=== PATIENT | female | born 1980 | race Caucasian/White ===

== ENCOUNTER 2023-07-15 08:23 | Outpatient (CLI) | payer BC, SELFPAY ==
[2023-07-15 08:53] LABS: Basophils Percent Auto 0.3 % (0.2-1.2); Eosinophils Absolute Auto 0.1 K/mm3 (0-0.3); Eosinophils Percent Auto 1.5 % (0-4.4); Hematocrit 40.1 % (37.0-47.0); Hemoglobin 13.6 g/dL (12.0-15.0); Immature Granulocyte Absolute 0.03 K/mm3 (0.00-0.031); Immature Granulocyte Percent A 0.4 % (0-0.5); Mean Corpuscular HGB Conc 33.9 g/dl (32-36); Mean Corpuscular Hemoglobin 30.6 pg (26-34); Mean Corpuscular Volume 90.1 fl (80-100); Monocytes Absolute Auto 0.4 K/mm3 (0.1-0.6); Monocytes Percent Auto 6.6 % (2.6-8.5); Neutrophils Absolute Auto 4.3 K/mm3 (1.3-6.7); Neutrophils Percent Auto 64.2 % (45.5-73.1); Platelet Count Result 160 k/mm3 (150-375); Red Blood Count 4.45 M/mm3 (4.2-5.4); Red Cell Distribution Width 12.9 % (11.5-14.5); White Blood Count 6.7 K/mm3 (4.5-10.0)
== END 2023-07-15 08:24 | disposition home or self-care (01) ==
LOC: ANHSURGERY 08:28
PROVIDERS: PCP Family Medicine; Visit Provider Obstetrics & Gynecology
DX: N92.0 Excessive and frequent menstruation with regular cycle (principal); Z01.818 Encounter for other preprocedural examination
CPT/HCPCS: 36415; 85025; 86850; 86900; 86901

== ENCOUNTER 2023-07-19 03:14 | Day surgery (SDC) | payer BC, SELFPAY ==
[2023-07-09 09:57] VITALS: BMI 40.8
--- NOTE | 2023-07-09 10:06 | PC.NURSE ---
Report to the Outpatient Waiting Room, entrance under the green pavilion located off [facility], at time _0730_ on date _[id number]_. Planned Procedure Time: _0930_. Time changes happen often and if your time is changed the preop area will call you the afternoon before. - You and your visitor will be asked to self-screen and do not enter if you have any COVID symptoms. - A mask is optional within the hospital at this time. Patients may have clear liquids (water, carbonated beverages, clear teas, apple juice) until 3 hours prior to surgery with a maximum of 20 ounces. - No food from midnight until time of surgery Take the following medications with a SIP of water the morning of surgery: ___Pain medication if needed. DO NOT STOP ANY OF YOUR OTHER PRESCRIPTION MEDICATIONS PRIOR TO SURGERY ?EXCEPT THE FOLLOWING Medications to discontinue per physician Multivitamin and B complex Date to take last [id number] Please no make-up, nail wolof, hairspray, perfume, deodorant, or body powder the day of surgery. No jewelry (including any body piercings) or valuables the day of surgery, leave them at home. Please take a shower or bath the night before, or the morning of, surgery with an antibacterial soap. Wear comfortable, loose fitting clothing. - Jewelry must be removed prior to entering the operating room. Rings and piercings that are not removed may be cut off. - The hospital will not accept responsibility for valuables. - Please leave all valuables, including medications, at home the day of surgery. If you are going home after surgery, a licensed recycle driver must drive you home. - NO public transportation without another adult if you receive anesthesia. - We recommend that an adult stay with you for 24 hours following discharge. - We also recommend that you do not drive, make important decision, drink alcoholic beverages, or take any drugs that were not prescribed by your health care provider for at least 24 hours after your discharge time. Follow any additional instructions given to you from your surgeon. If you or anyone in your household have experienced Covid symptoms in the past week, please notify your surgeon or the nurse liaison at the phone number below for possible testing. Telephone instructions given to __Patient___and asked if any additional questions and then verbalized understanding. Patient advised to call surgeon office or pre surgery nurse liaison [phone] if any additional questions.
--- NOTE | 2023-07-16 07:14 | PM.IMHP ---
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 She has been anemic secondary to vaginal bleeding. Risks and benefits of this procedure reviewed including but not exclusive of , aspiration pneumonia, bleeding, transfusion, perforation injury to bowel, bladder, ureters, or other internal organs with need for open laparotomy. She received the [employer] handout entitled hysterectomy as well as the [place] handout. She had all questions answered. She asked to proceed PMFSH Past Medical History Medical History Acute arthritis Anemia Generalized osteoarthritis of multiple sites Psoriatic arthritis Surgical History Surgical History Ovary removal, prophylactic Family History Family History Other Cancer Cerebrovascular accident Diabetes mellitus Heart disease Hypertension Thyroid disease Social History Social History Smoking packs per day: 1 Smoking cigarettes per day: 20.0 Years smoked: 10 Smoking pack-years: 10.00 Smoking status: Former smoker Tobacco type: cigarettes Smoking end date: 07/09/13 Alcohol intake: never Substance use: never Substance use type: does not use Living arrangements: with family Spiritual care concerns: No Meds Home Medications and Allergies Home Medications Medication Instructions Recorded Confirmed Type cetirizine 10 mg tablet (24Hour 10 mg PO DAILY PRN Allergy Symptoms 12/12/22 07/09/23 History Allergy) multivitamin 1 tablet PO DAILY 12/12/22 07/09/23 History tramadol 50 mg tablet 50 mg PO Q6H PRN Pain 12/12/22 07/09/23 History triamcinolone acetonide 0.1 % 1 applic topical BID 12/12/22 07/09/23 History topical cream vitamin B complex (B 1 tablet PO DAILY 12/12/22 07/09/23 History Complex-Vitamin B12 tablet) celecoxib 200 mg capsule (Celebrex) 200 mg PO DAILY PRN Pain 07/09/23 07/09/23 History Allergies Allergy/AdvReac Type Severity Reaction Status Date / Time azathioprine Allergy Mild Unknown Verified 07/09/23 09:54 latex Allergy Mild Rash Verified 07/09/23 09:54 Sulfa (Sulfonamide Allergy Mild Unknown Verified 07/09/23 09:54 Antibiotics) Exam Const: General: cooperative, healthy appearing and comfortable Orientation/consciousness: oriented to person, oriented to place and oriented to time HENMT: Head: normal to inspection Resp: Effort & Inspection: normal respiratory effort Cardio: Rate: regular rate Rhythm: regular rhythm Heart sounds: S1 normal heart sound present and S2 normal heart sound present GI: Inspection: normal to inspection and obesity Auscultation: normal bowel sounds : External Female Exam: normal external appearance Speculum Exam - Vagina: normal appearance of the vagina Speculum Exam - Cervix: normal appearance of the cervix Bimanual exam- vagina & uterus: enlarged Bimanual Exam- Adnexa, other: normal adnexae Assessment and Plan Assessment and plan (1) Pelvic pain: Code(s): R10.2 - Pelvic and perineal pain Status: Acute (2) Dysmenorrhea: Code(s): N94.6 - Dysmenorrhea, unspecified Status: Acute (3) Bicornuate uterus: Code(s): Q51.3 - Bicornate uterus Status: Acute Plan robotic total vaginal hysterectomy and bilateral salpingectomy
[2023-07-19] VITALS (10 sets, daily range): BP systolic 121–149; BP diastolic 66–89; PULSE 62–87; RESP 12–18; TEMP 36.1–36.8; O2SAT 96–100
--- NOTE | 2023-07-19 06:39 | WPDHPUPDATE1 ---
History and Physical Update Update Date/Time: 07/19/23 06:39 History and Physical has been reviewed, including an updated exam of the patient. There are NO changes in the patient's condition. Risks, benefits, and alternatives have been discussed and questions answered. Patient agrees to proceed with procedure.
[2023-07-19] MEDS: LACTATED RINGERS 1,000 ML 30 ML IV CONT ×2 (07:56→10:52)
[2023-07-19] MEDS: ACETAMINOPHEN 500 MG TABLET 1000 MG PO (08:19)
[2023-07-19] MEDS: KETOROLAC 15 MG/ML VIAL (*BKC) IV PUSH (08:20)
--- NOTE | 2023-07-19 08:35 | WPDANESEPPF ---
Anes - Initial Pre Proc Eval Procedure: Operation Date: 07/19/23 09:30 Proposed Procedures p Robotic Assisted Total Vaginal Hysterectomy with Bilateral Salpingectomy - Brien Garcia MD Date/Time: 07/19/23 08:35 Surgeon: Brien Garcia MD Pre Op Diagnosis: pain, heavy bleeding Patient Data Age: 42 Gender: F Height: 1.7 m Weight: 118.2 kg Allergies Allergy/AdvReac Type Severity Reaction Status Date / Time nut - unspecified Allergy Intermediate Hives Verified 07/19/23 07:45 azathioprine Allergy Mild Unknown Verified 07/19/23 07:43 latex Allergy Mild Rash Verified 07/19/23 07:43 Sulfa (Sulfonamide Allergy Mild Unknown Verified 07/19/23 07:43 Antibiotics) venom-wasp AdvReac Mild Swelling Verified 07/19/23 07:45 Home Medications Medication Instructions Recorded Confirmed Type cetirizine 10 mg tablet (24Hour 10 mg PO DAILY PRN Allergy Symptoms 12/12/22 07/19/23 History Allergy) multivitamin 1 tablet PO DAILY 12/12/22 07/19/23 History tramadol 50 mg tablet 50 mg PO Q6H PRN Pain 12/12/22 07/19/23 History triamcinolone acetonide 0.1 % 1 applic topical BID 12/12/22 07/19/23 History topical cream vitamin B complex (B 1 tablet PO DAILY 12/12/22 07/19/23 History Complex-Vitamin B12 tablet) celecoxib 200 mg capsule (Celebrex) 200 mg PO DAILY PRN Pain 07/09/23 07/19/23 History hydrocodone 5 mg-acetaminophen 325 1 tablet PO Q4H PRN pain #30 tabs 07/19/23 Rx mg tablet Patient hx anesthesia problems: none Family hx anesthesia problems: none Results Review: All pre-operative results and documents have been reviewed as part of the pre-operative evaluation. [facility] Past Medical History Medical History Acute arthritis Anemia Generalized osteoarthritis of multiple sites Psoriatic arthritis Surgical History Surgical History Ovary removal, prophylactic Family History Family History Other Cancer Cerebrovascular accident Diabetes mellitus Heart disease Hypertension Thyroid disease Social History Social History Smoking packs per day: 1 Smoking cigarettes per day: 20.0 Years smoked: 10 Smoking pack-years: 10.00 Smoking status: Former smoker Tobacco type: cigarettes Smoking end date: 07/09/13 Alcohol intake: never Substance use: never Substance use type: does not use Living arrangements: with family Spiritual care concerns: No Anes - Eval Final PreProcedure Day of Procedure 07/19/23 08:35 Patient weight: morbidly obese Heart: regular rate and rhythm Lungs: clear to auscultation Airway: Mallampati scale class II Neurological: alert and oriented Last oral intake: >/= 8 hours ASA classification: III Emergent: no Anesthetic plan: proceed Anesthesia type and monitoring: general ETT and standard monitoring Results Review: All pre-operative results and documents have been reviewed as part of the pre-operative evaluation. Informed Consent: The patient's anesthetic plan and its attendant risks and benefits were discussed with the patient/family/POA. Questions were solicited and answers provided to the satisfaction of the patient/family/POA.
[2023-07-19] MEDS: ceFAZolin 2 GM/D5W 50 ML 2 GM/50 ML BAG IVPB (09:28)
--- NOTE | 2023-07-19 10:27 | P.OP_ITS ---
Procedure Note - Detailed Date of Procedure 07/19/23 Pre-op Diagnosis pain, heavy bleeding Post-op Diagnosis Same Procedure Performed Buttock total vaginectomy bilateral salpingectomy Surgeon Brien Garcia MD Anesthesia General Indications This is a 42-year-old female with a bicornuate uterus and excessive heavy bleeding Findings Mildly enlarged uterus. Absent left ovary. Description of Procedure Patient was prepped draped sterile fashion placed in the dorsal lithotomy position. Under excellent general trach anesthesia weighted speculum placed posterior fornix vagina. Anterior lip of the cervix grasped with single-tooth tenaculum the uterus sounded to 10cm. Serial dilatation with fragmented out performed followed by passes the 8. KATHIA and the 3. Cold cup. Next the 16 Marshall[place] catheter placed in bladder and bladder drained of clear urine. The weighted speculum was removed the gloves were changed. A supraumbilical incision made the Veress needle passed in the abdomen. Abdomen filled with CO2 gas [id number]. The 8 trocar advanced exam. Downside visualized. No injury seen. Patient placed in 20? Trendelenburg. In left and right lateral quadrant incisions made. 8mm trocars advanced under direct visualization assuring no injury. Right upper quadrant incision made the 8mm trocar advanced under direct visualization assuring no injury. The robot was docked. Attention was turned to the console. The there were some adhesions anteriorly which were sharply dissected from the omentum to the anterior abdominal wall. Left round was grasped, burned, cut. Anterior bladder flap was formed. The left fallopian tube was sharply dissected away from the adnexa and left attached at its uterine origin. This was repeated on the contralateral side with the right tube. The right utero-ovarian ligament was skeletonized conserving the right ovary clamping burning cutting until reaching the previously cut round ligament. There was no ovary on the left cardinal broad ligaments on the left were serially skeletonized clamping burning cutting and bringing this down to the uterine vessels on the left. Serially clamped, burned, cut. A similar fashion the cardinal broad ligaments on the right were serially skeletonized clamping burning cutting and bringing this down the lateral edge of the uterus until the uterine vessels could be seen. These were then grasped, burned, cut. Blanching these were seen a colpotomy incision was made. Uterus cervix and tubes removed through the vagina. The vagina closed with continuous running locking 0 Vicryl from lateral edge to lateral edge and back to the midline. Irrigation undertaken to clear. [place] term was placed to the raw surface area. The robot was undocked. The gas removed from the abdomen. The trocars removed and the incisions closed with 4 Monocryl glue the patient was awakened went to recovery in satisfactory condition. All sponge, needle, instrument counts were correct. There were no immediate complications Estimated Blood Loss 25 Drains No Packing No Pathology Yes Complications No immediate complications Condition Stable Disposition PACU
[2023-07-19] MEDS: fentaNYL CITRATE INJ (*CRX) 100 MCG/2 ML VIAL 25 MCG IV PUSH ×4 (11:10→11:23)
--- NOTE | 2023-07-19 12:15 | PC.NURSE ---
Patient transferred to post room #276 via ( stretcher ). Support person present. Oriented to unit, room, information board, rooming in, admission packet and security measures. Patient verbalizes understanding.
[2023-07-19] MEDS: DEXTROSE 5%/LACTATED RINGERS 1,000 ML 125 ML IV CONT (12:27)
[2023-07-19] MEDS: KETOROLAC 30 MG/ML VIAL (*BKC) IV PUSH (12:33)
--- NOTE | 2023-07-19 12:47 | PM.DS ---
DS: Admitting Diagnosis Discharge Date 07/20/2020 Admitting Diagnosis Bicornuate uterus/dysmenorrhea/pelvic pain DS: Discharge Diagnosis Discharge Diagnosis (1) Bicornuate uterus: Code(s): Q51.3 - Bicornate uterus Status: Acute (2) Dysmenorrhea: Code(s): N94.6 - Dysmenorrhea, unspecified Status: Acute (3) Pelvic pain: Code(s): R10.2 - Pelvic and perineal pain Status: Acute DS: Summary Hospital Course Reason for hospitalization: Patient for robotic total vaginal hysterectomy and bilateral salpingectomy on 07/19/2023. Hospital Course: Patient underwent said procedure 13 3. She had an unremarkable postoperative course. She remained afebrile. Was up 2 ambulating, eating a regular diet, and generally without complaints. Time Spent with Patient Time attestation: Total time spent providing and/or coordinating discharge services: Exam Const: General: cooperative, healthy appearing and comfortable Nutritional Appearance: average body habitus Orientation/consciousness: oriented to person, oriented to place and oriented to time Resp: Effort & Inspection: normal respiratory effort Cardio: Rate: regular rate Rhythm: regular rhythm Heart sounds: S1 normal heart sound present and S2 normal heart sound present GI: Inspection: normal to inspection and incision (Wounds are clean dry and intact) Discharge Plan Discharge Patient Disposition: Home, Self-Care Stand Alone Forms: General Discharge Instructions Follow-up/Referrals: Brien Guerrero MD [Physician] - Discharge Medications: New hydrocodone-acetaminophen 5-325 mg tablet 1 tablet PO Q4H PRN (Reason: pain) Qty: 30 0RF No Action celecoxib [Celebrex] 200 mg capsule 200 mg PO DAILY PRN (Reason: Pain) triamcinolone acetonide 0.1 % cream 1 applic topical BID tramadol 50 mg tablet 50 mg PO Q6H PRN (Reason: Pain) multivitamin Tablet 1 tablet PO DAILY vitamin B complex [B Complex-Vitamin B12] Tablet 1 tablet PO DAILY cetirizine [24Hour Allergy] 10 mg tablet 10 mg PO DAILY PRN (Reason: Allergy Symptoms)
[2023-07-19] MEDS: ONDANSETRON INJ 4 MG/2 ML VIAL IV PUSH (15:17)
[2023-07-19] MEDS: DOCUSATE SODIUM 100 MG CAPSULE PO (16:12)
[2023-07-19] MEDS: IBUPROFEN 600 MG TABLET PO (20:30)
[2023-07-20] MEDS: ACETAMINOPHEN 325 MG TABLET 650 MG PO (04:28)
[2023-07-20 04:30] VITALS: BP 128/77; PULSE 73; RESP 16; TEMP 36.7; O2SAT 98
[2023-07-20 08:00] VITALS: BP 149/80; PULSE 76; RESP 18; TEMP 36.7; O2SAT 100
[2023-07-20 08:46] LABS: Basophils Percent Auto 0.1 % (0.2-1.2); Hematocrit 38.4 % (37.0-47.0); Hemoglobin 12.8 g/dL (12.0-15.0); Immature Granulocyte Absolute 0.07 K/mm3 (0.00-0.031); Immature Granulocyte Percent A 0.5 % (0-0.5); Lymphocytes Absolute Auto 1.01 K/mm3 (0.9-3.2); Lymphocytes Percent Auto 6.6 % (18.3-44.2); Mean Corpuscular HGB Conc 33.3 g/dl (32-36); Mean Corpuscular Hemoglobin 30.8 pg (26-34); Mean Corpuscular Volume 92.5 fl (80-100); Monocytes Absolute Auto 0.6 K/mm3 (0.1-0.6); Monocytes Percent Auto 3.8 % (2.6-8.5); Neutrophils Absolute Auto 13.5 K/mm3 (1.3-6.7); Platelet Count Result 176 k/mm3 (150-375); Red Blood Count 4.15 M/mm3 (4.2-5.4); Red Cell Distribution Width 12.5 % (11.5-14.5); White Blood Count 15.2 K/mm3 (4.5-10.0)
--- NOTE | 2023-07-20 09:25 | PM.GYNPNOP ---
GARAGE HELPER - A/P Assessment and plan (1) Bicornuate uterus: Code(s): Q51.3 - Bicornate uterus Status: Acute Assessment and Plan: A: POD#1, doing well. P: Home to f/u 2 weeks. (2) Dysmenorrhea: Code(s): N94.6 - Dysmenorrhea, unspecified Status: Acute (3) Pelvic pain: Code(s): R10.2 - Pelvic and perineal pain Status: Acute Postoperative Procedures: Procedures Operation Date: 07/19/23 09:30 Actual Procedure Side Surgeon p Robotic Assisted Total Vaginal Hysterectomy with Bilateral Salpingectomy Bilateral Brien Garcia MD Time Spent With Patient Time with patient: less than 15 minutes GARAGE HELPER- PN:Subj Post-Op Subjective Date/time seen: 07/20/23 09:25 Interval history: Pain OK. Tolerating diet. Voiding. Would like to go home. Exam Narrative: AVSS I/O OK ABD soft, nontender. Incisions c/d/i. EXT nontender GARAGE HELPER - PN: Obj Data Vital Signs Vital Signs: Vital Signs - 24 hr 07/19/23 10:52 07/19/23 11:05 07/19/23 11:20 Temperature 36.1 C L Pulse Rate 87 72 74 Respiratory Rate 12 12 12 Blood Pressure 139/68 132/86 142/86 H Pulse Oximetry 100 100 97 Oxygen Delivery Simple Face Mask Simple Face Mask Room Air Oxygen Flow Rate 8 8 07/19/23 11:35 07/19/23 11:50 07/19/23 12:01 Temperature Pulse Rate 76 72 66 Respiratory Rate 14 14 14 Blood Pressure 135/89 121/70 125/66 Pulse Oximetry 97 98 96 Oxygen Delivery Room Air Room Air Room Air Oxygen Flow Rate 07/19/23 12:40 07/19/23 12:20 07/19/23 16:13 Temperature 36.6 C Pulse Rate 62 Respiratory Rate 16 Blood Pressure 139/83 Pulse Oximetry 98 Oxygen Delivery Room Air Room Air Oxygen Flow Rate 07/19/23 16:13 07/19/23 20:30 07/19/23 20:30 Temperature 36.4 C L 36.8 C Pulse Rate 77 77 77 Respiratory Rate 16 16 16 Blood Pressure 149/84 H 121/68 Pulse Oximetry 97 96 96 Oxygen Delivery Room Air Oxygen Flow Rate 07/20/23 04:30 07/20/23 04:30 Temperature 36.7 C Pulse Rate 73 73 Respiratory Rate 16 16 Blood Pressure 128/77 Pulse Oximetry 98 98 Oxygen Delivery Room Air Oxygen Flow Rate Intake/Output Intake/Output: Intake & Output 07/17/23 07/18/23 07/19/23 07/20/23 23:59 23:59 23:59 23:59 Intake Total 1600 Output Total 1600 950 Balance 0 -950 Meds/Results Medications: Active Medications Generic Name Dose Route Start Last Admin Trade Name Freq PRN Reason Stop Dose Admin Acetaminophen 650 mg 07/20/23 04:15 07/20/23 04:28 Acetaminophen 325 Mg Tablet PO 650 mg Q4H PRN Administration Headache Hydrocodone Bitart/Acetaminophen 1 tab 07/19/23 12:02 Hydrocodone/Acetaminophen (*Crx) 5-325 Mg Tablet PO Q3H PRN Pain Rated 5 or Less Hydrocodone Bitart/Acetaminophen 1 tab 07/19/23 12:02 Hydrocodone/Acetaminophen (*Crx) 10-325 Mg Tablet PO Q3H PRN Pain Rated 6 or Greater Docusate Sodium 100 mg 07/19/23 17:00 07/19/23 16:12 Docusate Sodium 100 Mg Capsule PO 100 mg BID LIDIA Administration Enoxaparin Sodium 40 mg 07/20/23 09:00 Enoxaparin 40 Mg/0.4 Ml Syringe SUB-Q DAILY LIDIA Ibuprofen 600 mg 07/19/23 12:02 07/19/23 20:30 Ibuprofen 600 Mg Tablet PO 600 mg Q6H PRN Administration Cramping Ketorolac Tromethamine 30 mg 07/19/23 12:02 07/19/23 12:33 Ketorolac 30 Mg/Ml Vial (*Bkc) IV PUSH 07/24/23 12:01 30 mg Q6H PRN Administration Pain Rated 4-6 Naloxone HCl 0.1 mg 07/19/23 12:02 Naloxone Hcl 0.4 Mg/Ml Vial IV PUSH Q2M PRN Respiratory rate less than 10 Ondansetron HCl 4 mg 07/19/23 12:02 07/19/23 15:17 Ondansetron Inj 4 Mg/2 Ml Vial IV PUSH 4 mg Q6H PRN Administration Nausea And Vomiting Simethicone 80 mg 07/19/23 12:02 Simethicone 80 Mg Tab.Chew PO Q2H PRN Gas Labs 07/20/23 04:17 Labs: Laboratory Results - last 24 hr 07/20/23 04:17 WBC 15.2 H RBC 4.15
[2023-07-20] MEDS: ENOXAPARIN 40 MG/0.4 ML SYRINGE SUB-Q (10:03)
[2023-07-20] MEDS: DOCUSATE SODIUM 100 MG CAPSULE PO (10:03)
[2023-07-20] MEDS: IBUPROFEN 600 MG TABLET PO (10:03)
== END 2023-07-20 11:25 | disposition home or self-care (01) ==
LOC: ANHSURGERY 07:14 → ANHOB2 12:05
PROVIDERS: PCP Family Medicine; Visit Provider Obstetrics & Gynecology
PROC: (CPT 58552; principal; 2023-07-19 09:30)
DX: N92.0 Excessive and frequent menstruation with regular cycle (principal); N84.1 Polyp of cervix uteri; N88.8 Other specified noninflammatory disorders of cervix uteri; N70.11 Chronic salpingitis; N83.8 Other noninflammatory disorders of ovary, fallopian tube and broad ligament; R10.2 Pelvic and perineal pain; Q51.3 Bicornate uterus; L40.50 Arthropathic psoriasis, unspecified; Z87.891 Personal history of nicotine dependence; E66.01 Morbid (severe) obesity due to excess calories; Z68.41 Body mass index [BMI] 40.0-44.9, adult
CPT/HCPCS: 58552; S2900; 36415; 85025; 88307; 99199; A9270; J0690; J1100; J1170; J1650; J1885; J2250; J2405; J2704; J3010; J7030; J7120; J7121